=== PATIENT | female | born 1990 | race Caucasian/White ===

== ENCOUNTER → 2017-06-15 | Outpatient (CLI) | payer MEDICAID | LOC: BMCIMAGING 18:24 | PROVIDERS: ATTEND Family Medicine | DX: M79.662 Pain in left lower leg (principal) ==

== ENCOUNTER → 2018-03-04 | Outpatient (CLI) | payer MEDICAID | LOC: FIMAGING 10:43 | PROVIDERS: ATTEND Physician Assistant | DX: R05 Cough (principal); R53.81 Other malaise; R53.83 Other fatigue ==